=== PATIENT | female | born 1985 | race African-American/Black ===

== ENCOUNTER 2017-04-17 08:30 | Emergency (ER) | payer MEDICAID ==
[2011-04-12 03:54] VITALS: BMI 34.2
== END 2017-04-17 09:53 | disposition home or self-care (01) ==
LOC: D.ER 08:30
DX: S93.402A Sprain of unspecified ligament of left ankle, initial encounter (principal); X50.1XXA Overexertion from prolonged static or awkward postures, initial encounter; Y93.9 Activity, unspecified; Y92.019 Unspecified place in single-family (private) house as the place of occurrence of the external cause; F17.200 Nicotine dependence, unspecified, uncomplicated

== ENCOUNTER 2017-12-10 08:04 | Emergency (ER) | payer MEDICAID ==
[~2017-12-10] VITALS: Ht 154.9 cm; Wt 75.0 kg
[2017-12-10 08:17] VITALS: Ht 154.9 cm; Wt 75.0 kg
[2017-12-10] MEDS ORDERED: KEFLEX500 MG PO (09:00)
[2017-12-10] MEDS ORDERED: ULTRAM50 MG PO (09:00)
[2017-12-10 09:35] VITALS: BP 146/92
== END 2017-12-10 09:36 | disposition home or self-care (01) ==
LOC: D.ER 08:04
DX: K08.89 Other specified disorders of teeth and supporting structures (principal); K02.9 Dental caries, unspecified; F17.200 Nicotine dependence, unspecified, uncomplicated